=== PATIENT | male | born 1995 | race African-American/Black ===

== ENCOUNTER 2020-03-08 22:47 | Emergency (ER) | payer SELFPAY, MEDICAID ==
[~2020-03-08] VITALS: Ht 175.3 cm; Wt 73.5 kg
[2020-03-08 22:55] VITALS: BP 135/84
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
== END 2020-03-08 23:00 ==
LOC: EMR 22:59
DX: H11.31 Conjunctival hemorrhage, right eye (principal); S00.83XA Contusion of other part of head, initial encounter; Y35.893A Legal intervention involving other specified means, suspect injured, initial encounter; Y92.9 Unspecified place or not applicable
CPT/HCPCS: 99282